=== PATIENT | female | born 1970 ===

== ENCOUNTER → 2017-11-10 06:04 | Emergency (ER) | payer OTHER ==
[~2017-11-10 06:04] MED LIST: Diazepam SYRINGE* 5 MG/ML 2 ML SYRINGE (10 MG total) IV ONE; Metoclopramide IV* 5 MG/ML 2 ML VIAL IV ONE; NS 0.9% 1000 ML* 1,000 ML IV ONE; Pantoprazole IV* 40 MG IV ONE; Thiamine IV 100 MG, Folic Acid IV* 1 MG, Multiple Vitamin IV ADULT* 10 ML in NS 0.9% 10... IV ONE
[2017-11-10 06:42] LABS: ABS Basophils 0 10^3/ul (0-0.2); ABS Eosinophils 0.1 10^3/ul (0-0.6); ABS Lymphocytes 2.1 10^3/ul (1.0-4.8); ABS Monocytes 0.4 10^3/ul (0-0.8); ABS Neutrophils 7.6 10^3/ul (1.5-7.7); ABS Nucleated RBC 0.01 10^3/ul; Eosinophil % 0.6 % (0-6); Hematocrit 41 % (35-47); Hemoglobin 14.1 g/dl (12.0-16.0); Lymphocyte % 20.5 % (25-47); Mean Corpuscular HGB Conc 34 g/dl (31-36); Mean Corpuscular Hemoglobin 31 pg (27-31); Mean Corpuscular Volume 92 fL (80-97); Nucleated Red Blood Cells % 0.1; Red Cell Distribution Width 14 % (10.5-15); White Blood Count 10.1 10^3/ul (3.5-10.8)
[2017-11-10 06:56] LABS: EGFR Non-African American 83.8 (>60)
[2017-11-10 07:27] LABS: Platelet Count 261 10^3/ul (150-450)
[2017-11-10 09:28] LABS: Urine Appearance Cloudy; Urine Blood Negative (Negative); Urine Color Yellow; Urine Ketones 1+ (Negative); Urine Protein Negative (Negative); Urine Specific Gravity 1.011 (1.010-1.030); Urine Urobilinogen Negative (Negative)
[2017-11-10 11:24] LABS: EGFR Non-African American 102.7 (>60)
[2017-11-10 12:55] VITALS: BP 130/88
--- NOTE | 2017-11-17 22:07 | ED ---
Vernon Chatterjee Tecjoon, scribsid for Lupe Leal MD on 11/10/17 at 0634 . Substance Abuse/Use - HPI Summary HPI Summary: This patient is a 47 year old female presenting to [facility] with a chief complaint of active vomiting after EtOH abuse since last night. Patient states she has been alcohol-free for 2 months, but had several liters of alcohol over the last 2 days and cannot stop vomiting since 2330 last night. The pain is rated 8/10 in severity. Symptoms aggravated by nothing. Symptoms alleviated by nothing. Patient additionally reports severe abdominal pain, shakiness. Patient denies diarrhea or blood in vomit. Patient has a history of alcohol abuse and has been to rehab for it previously. - History Of Current Complaint Chief Complaint: EDSubstanceAbuse Stated Complaint: BREATHING PROBLEMS Time Seen by Provider: 11/10/17 06:09 Hx Obtained From: Patient Onset/Duration of Drug/ETOH Abuse: Days - 2 days ago Ingestion History: Type/Name Of Drug - Alcohol/EtOH, Amount Ingested - "several liters" Overdose Characteristics: Oral Timing Of Abuse: Recent Cessation For A Period Of - 2 months Severity Currently: Moderate Character: Anxious Aggravating Factor(s): Nothing Alleviating Factor(s): Nothing Associated Signs And Symptoms: Negative - blood in vomit, diarrhea, Other: - abdominal pain, shakiness Related Hx: Prior Drug Abuse Counseling/Admission - Allergies/Home Medications Allergies/Adverse Reactions: Allergies Allergy/AdvReac Type Severity Reaction Status Date / Time No Known Allergies Allergy Verified 11/10/17 06:09 PMH/Surg Hx/FS Hx/Imm Hx Previously Healthy: No Opthamlomology History: Denies: Hx Legally Blind EENT History: Denies: Hx Deafness Psychiatric History: Reports: Hx Substance Abuse - Immunization History Date of Tetanus Vaccine: unk Date of Influenza Vaccine: unk Infectious Disease History: No Infectious Disease History: Denies: Traveled Outside the [place] in Last 30 Days - Family History Known Family History: Negative: Hypertension - Social History Alcohol Use: Daily Alcohol Amount: dry for 2 months, drank last 2 days Hx Substance Use: No Substance Use Type: Reports: None Hx Tobacco Use: No Smoking Status (MU): Never Smoked Tobacco Review of Systems Negative: Fever Gastrointestinal: Negative - blood in vomit Positive: Abdominal Pain, Vomiting. Negative: Diarrhea All Other Systems Reviewed And Are Negative: Yes Physical Exam - Summary Physical Exam Summary: VITAL SIGNS: Reviewed. GENERAL: Patient is a well-developed and nourished female who is lying in the stretcher. Patient is not in any acute respiratory distress. Patient is actively retching. HEAD AND FACE: No signs of trauma. No ecchymosis, hematomas or skull depressions. No sinus tenderness. EYES: PERRLA, EOMI x 2, No injected conjunctiva, no nystagmus. EARS: Hearing grossly intact. Ear canals and tympanic membranes are within normal limits. MOUTH: Oropharynx within normal limits. NECK: Supple, trachea is midline, no adenopathy, no JVD, no carotid bruit, no c- spine tenderness, neck with full ROM. CHEST: Symmetric, no tenderness at palpation LUNGS: Clear to auscultation bilaterally. No wheezing or crackles. CVS: Regular rate and rhythm, S1 and S2 present, no murmurs or gallops appreciated. ABDOMEN: Epigastric tenderness EXTREMITIES: FROM in all major joints, no edema, no cyanosis or clubbing. NEURO: Alert and oriented x 3. No acute neurological deficits. Speech is normal and follows commands. SKIN: Dry and warm Triage Information Reviewed: Yes Vital Signs On Initial Exam: Initial Vitals Temp Pulse Resp BP Pulse Ox 97.1 F 103 18 133/97 98 11/10/17 06:07 11/10/17 06:07 11/10/17 06:07 11/10/17 06:07 11/10/17 06:07 Vital Signs Reviewed: Yes - Yohan Coma Scale Coma Scale Total: 15 Diagnostics - Vital Signs Vital Signs Temp Pulse Resp BP Pulse Ox 11/10/17 06:07 97.1 F 103 18 133/97 98 - Laboratory Lab Results: Lab Results 11/10/17 11/10/17 11/10/17 Range/Units 06:25 06:25 08:25 WBC 10.1 (3.5-10.8) 10^3/ul RBC 4.50 (4.0-5.4) 10^6/ul Hgb 14.1 (12.0-16.0) g/dl Hct 41 (35-47) % MCV 92 (80-97) fL MCH 31 (27-31) pg MCHC 34 (31-36) g/dl RDW 14 (10.5-15) % Plt Count 261 (150-450) 10^3/ul MPV Not Reportable Neut % (Auto) 75.1 (38-83) % Lymph % (Auto) 20.5 L (25-47) % [place] % (Auto) 3.5 (1-9) % Eos % (Auto) 0.6 (0-6) % Baso % (Auto) 0.3 (0-2) % Absolute Neuts (auto) 7.6 (1.5-7.7) 10^3/ul Absolute Lymphs (auto) 2.1 (1.0-4.8) 10^3/ul Absolute Monos (auto) 0.4 (0-0.8) 10^3/ul Absolute Eos (auto) 0.1 (0-0.6) 10^3/ul Absolute Basos (auto) 0 (0-0.2) 10^3/ul Absolute Nucleated RBC 0.01 10^3/ul Nucleated RBC % 0.1 VBG pH (7.33-7.43) VBG pCO2 (41-51) mmHg VBG pO2 (35-45) mmHg VBG HCO3 (24-28) mmol/L VBG O2 Saturation (70-80) % VBG Base Excess (0-4) Sodium 133 (133-145) mmol/L Potassium TNP 3.9 Chloride 93 L (101-111) mmol/L Carbon Dioxide 18 L (22-32) mmol/L Anion Gap 22 H (2-11) mmol/L BUN 12 (6-24) mg/dL Creatinine 0.74 (0.51-0.95) mg/dL Est GFR ( Amer) 107.7 (>60) Est GFR (Non-Af Amer) 83.8 (>60) BUN/Creatinine Ratio 16.2 (8-20) Glucose 172 H (70-100) mg/dL Calcium 10.1 (8.6-10.3) mg/dL Total Bilirubin 0.90 (0.2-1.0) mg/dL AST TNP 149 H ALT 91 H (7-52) U/L Alkaline Phosphatase 71 (34-104) U/L C-Reactive Protein 1.98 (< 5.00) mg/L Total Protein 7.8 (6.4-8.9) g/dL Albumin 4.2 (3.2-5.2) g/dL Globulin 3.6 (2-4) g/dL Albumin/Globulin Ratio 1.2 (1-3) Amylase 45 (29-103) U/L Lipase 34 (11.0-82.0) U/L Urine Color Urine Appearance Urine pH (5-9) Ur Specific [place] (1.010-1.030) Urine Protein (Negative) Urine Ketones (Negative) Urine Blood (Negative) Urine Nitrate (Negative) Urine Bilirubin (Negative) Urine Urobilinogen (Negative) Ur Leukocyte Esterase (Negative) Urine WBC (Auto) (Absent) Urine RBC (Auto) (Absent) Ur Squamous Epith Cells (Absent) Urine Bacteria (Absent) Urine Glucose (Negative) 11/10/17 11/10/17 11/10/17 Range/Units 08:40 08:55 10:45 WBC (3.5-10.8) 10^3/ul RBC (4.0-5.4) 10^6/ul Hgb (12.0-16.0) g/dl Hct (35-47) % MCV (80-97) fL MCH (27-31) pg MCHC (31-36) g/dl RDW (10.5-15) % Plt Count (150-450) 10^3/ul MPV Neut % (Auto) (38-83) % Lymph % (Auto) (25-47) % [place] % (Auto) (1-9) % Eos % (Auto) (0-6) % Baso % (Auto) (0-2) % Absolute Neuts (auto) (1.5-7.7) 10^3/ul Absolute Lymphs (auto) (1.0-4.8) 10^3/ul Absolute Monos (auto) (0-0.8) 10^3/ul Absolute Eos (auto) (0-0.6) 10^3/ul Absolute Basos (auto) (0-0.2) 10^3/ul Absolute Nucleated RBC 10^3/ul Nucleated RBC % VBG pH 7.48 H (7.33-7.43) VBG pCO2 38 L (41-51) mmHg VBG pO2 74 H (35-45) mmHg VBG HCO3 28.4 H (24-28) mmol/L VBG O2 Saturation 94.4 H (70-80) % VBG Base Excess 4.6 H (0-4) Sodium 134 (133-145) mmol/L Potassium 3.6 Chloride 98 L (101-111) mmol/L Carbon Dioxide 24 (22-32) mmol/L Anion Gap 12 H (2-11) mmol/L BUN 10 (6-24) mg/dL Creatinine 0.62 (0.51-0.95) mg/dL Est GFR ( Amer) 132.1 (>60) Est GFR (Non-Af Amer) 102.7 (>60) BUN/Creatinine Ratio 16.1 (8-20) Glucose 157 H (70-100) mg/dL Calcium 8.5 L (8.6-10.3) mg/dL Total Bilirubin (0.2-1.0) mg/dL AST ALT (7-52) U/L Alkaline Phosphatase (34-104) U/L C-Reactive Protein (< 5.00) mg/L Total Protein (6.4-8.9) g/dL Albumin (3.2-5.2) g/dL Globulin (2-4) g/dL Albumin/Globulin Ratio (1-3) Amylase (29-103) U/L Lipase (11.0-82.0) U/L Urine Color Yellow Urine Appearance Cloudy Urine pH 8.0 (5-9) Ur Specific [place] 1.011 (1.010-1.030) Urine Protein Negative (Negative) Urine Ketones 1+ H (Negative) Urine Blood Negative (Negative) Urine Nitrate Negative (Negative) Urine Bilirubin Negative (Negative) Urine Urobilinogen Negative (Negative) Ur Leukocyte Esterase 1+ H (Negative) Urine WBC (Auto) Trace(0-5/hpf) (Absent) Urine RBC (Auto) Trace(0-2/hpf) (Absent) Ur Squamous Epith Cells Present H (Absent) Urine Bacteria Absent (Absent) Urine Glucose Negative (Negative) Result Diagrams: 11/10/17 06:25 11/10/17 10:45 Lab Statement: Any lab studies that have been ordered have been reviewed, and results considered in the medical decision making process. Course/Dx - Course Course Of Treatment: This patient is a 47 year old female presenting to [facility] with a chief complaint of active vomiting after EtOH abuse since last night. Patient states she has been alcohol-free for 2 months, but had several liters of alcohol over the last 2 days and cannot stop vomiting since 2330 last night. The pain is rated 8/10 in severity. Symptoms aggravated by nothing. Symptoms alleviated by nothing. Patient additionally reports severe abdominal pain, shakiness. Patient denies diarrhea or blood in vomit. Patient has a history of alcohol abuse and has been to rehab for it previously. Bloodwork Obtained. In the ED course the patient was given Protonix, Reglan, Valium, Vitamin B1. Patient to be signed out at end of shift to Dr. Laureano. - Diagnoses Provider Diagnoses: starvation ketosis, Alcohol consumption binge drinking Discharge - Discharge Plan Condition: Stable Disposition: HOME Patient Education Materials: Abuse of Alcohol (ED) Referrals: Ed Mcguire MD [Primary Care Provider] - Additional Instructions: Please follow up with your primary care provider in 2-3 days. RETURN TO THE EMERGENCY DEPARTMENT FOR CHANGING OR WORSENING SYMPTOMS. The documentation as recorded by the Vernon burnham Tecjoon accurately reflects the service I personally performed and the decisions made by , Lupe Leal MD.
--- NOTE | 2017-11-21 11:39 | ED ---
Samy Chatterjee Angela, jayed for Abhi Laureano MD on 11/10/17 at 0722 . Progress - Progress Note Progress Note: This pt was signed out by Dr. Leal, pending disposition, awaiting alcohol metabolism. Pt is a 47 y/o female presenting to [facility] c/o active vomiting after EtOH abuse since last night. Pt will be discharged to home, in stable condition, with a diagnosis of binge drinking and starvation ketosis. Re-Evaluation - Re-Evaluation First Eval Re-Evaluation Time: 11:56 Comment: Pt reports she feels ok. She feels hungry and would like apple juice and a turkey sandwich. On re-examination, her abdomen is soft and nontender. Course/Dx - Course Course Of Treatment: On re-eval, pt reports she feels ok. She feels hungry and would like apple juice and a turkey sandwich. On re-examination, her abdomen is soft and nontender. Her chemistries have improved, anion gap is down to 12, bicarb is up to 24 after IV fluids. Pt is tolerating PO. She will be discharged to home with follow up from PCP in 2-3 days. Pt will be discharged to home, in stable condition, with a diagnosis of binge drinking and starvation ketosis. - Diagnoses Provider Diagnoses: Alcohol consumption binge drinking, starvation ketosis The documentation as recorded by the Samy burnham Angela accurately reflects the service I personally performed and the decisions made by , Abhi Laureano MD.
== END | disposition home or self-care (01) ==
LOC: ED 06:04
DX: E88.89 Other specified metabolic disorders (principal); T73.0XXA Starvation, initial encounter; F10.10 Alcohol abuse, uncomplicated; X58.XXXA Exposure to other specified factors, initial encounter; Y92.9 Unspecified place or not applicable
CPT/HCPCS: 36415; 80048; 80053; 81003; 81015; 82150; 82803; 83690; 85025; 86140; 87086; 96360; 96361; 96374; 96375; 96376; 99283; J2765; J3360; J3411